=== PATIENT | male | born 1975 | race Caucasian/White ===

== ENCOUNTER 2020-04-03 12:31 | Emergency (ER) | payer MEDICAID ==
[~2020-04-03] VITALS: Ht 177.8 cm; Wt 131.8 kg
[2020-04-03 12:50] VITALS: TEMP 98
[2020-04-03 15:16] LABS: BASO # 0.1 (0.0-0.2); BASO % 0.7 % (0.0-2.0); EOS # 0.6 (0.0-0.7); EOS % 6.1 % (0-4.0); GRAN # 5.8 (1.4-6.5); GRAN % 63.2 % (42.2-75.2); HEMATOCRIT 40.7 % (42.0-52.0); HEMOGLOBIN 13.3 g/dl (13.5-18.0); LYMPH % 21.4 % (20.0-51.0); MEAN CELL VOLUME 87 fl (80.0-100.0); MEAN CORPUSCULAR HEMOGLOBIN 28 pg (27.0-31.0); MEAN CORPUSCULAR HGB CONC 33 g/dl (33.0-37.0); MEAN PLATELET VOLUME 9.5 fl (7.4-10.4); MONO # 0.7 (0.1-0.6); MONO % 8.1 % (1.7-9.3); PLATELET COUNT 267 K/mm3 (130-400); RED BLOOD COUNT 4.68 M/mm3 (4.20-5.60); REDCELL DISTRIBUTION WIDTH-CV 14.1 % (11.5-14.5)
[2020-04-03 15:35] LABS: ALANINE AMINOTRANSFERASE 41 U/L (4-49); ALBUMIN 4.4 gm/dL (3.5-5.0); ALKALINE PHOSPHATASE 90 U/L (50-136); ANION GAP 8 mmol/L (7-16); AST,SGOT 38 U/L (15-37); BILIRUBIN,TOTAL 0.6 mg/dL (0.0-1.0); BLOOD UREA NITROGEN 15 mg/dL (9-20); CALCIUM 9.5 mg/dL (8.4-10.2); CARBON DIOXIDE 30 mmol/L (22-30); CHLORIDE 101 mmol/L (98-107); CREATININE, serum 0.78 (0.66-1.25); GLUCOSE 109 mg/dL (74-106); POTASSIUM 4.3 mmol/L (3.4-5.0); SODIUM 139 mmol/L (137-145)
[2020-04-03 15:45] LABS: TROPONIN-I < 0.012 ng/mL (0.000-0.035)
[2020-04-03] MEDS ORDERED: ALBUTEROL0.83 MG/ML IH (16:49)
[2020-04-03] MEDS ORDERED: PREDNISONE50 MG PO (16:49)
[2020-04-03] MEDS ORDERED: PROVENTIL0.09 MG/A1 IH (16:50)
[2020-04-03 17:06] VITALS: BP 132/93; PULSE 94
== END 2020-04-03 17:03 | disposition home or self-care (01) ==
LOC: COL.ER 12:31
PROVIDERS: Physician Assistant
DX: J45.901 Unspecified asthma with (acute) exacerbation (principal); J20.9 Acute bronchitis, unspecified; E66.01 Morbid (severe) obesity due to excess calories; R11.10 Vomiting, unspecified; Z20.828 Contact with and (suspected) exposure to other viral communicable diseases; Z68.41 Body mass index [BMI] 40.0-44.9, adult
CPT/HCPCS: J7512